=== PATIENT | male | born 1990 | race Caucasian/White ===

== ENCOUNTER 2018-09-29 09:17 | Inpatient (IN) | payer MEDICAID ==
[~2018-09-29] VITALS: Ht 175.3 cm; Wt 69.0 kg
[2018-09-29 09:29] VITALS: Ht 175.3 cm; Wt 69.0 kg
[2018-09-29 11:38] LABS: BASOPHIL % 0.1 % (0-2); PLATELET COUNT 211 x10^3mcL (130-400); RED CELL DISTRIBUTION WIDTH 12.8 % (11.5-14.5)
[2018-09-29 11:48] LABS: CALCIUM 10.4 mg/dL (8.5-10.1); CHLORIDE SERUM 93 mmol/L (98-107); CREATININE SERUM 1.7 mg/dL (0.7-1.3); GFR1 51 mL/min; GLUCOSE SERUM 176 mg/dL (74-106); POTASSIUM SERUM 4.6 mmol/L (3.5-5.1); SODIUM SERUM 137 mmol/L (136-145)
[2018-09-29 11:53] LABS: ALBUMIN 4.3 g/dL (3.4-5.0); ALKALINE PHOSPHATASE 141 U/L (46-116); ALT/SGPT 112 U/L (16-63); AST/SGOT 97 U/L (15-37); BILIRUBIN TOTAL 3.16 mg/dL (0.20-1.00); MAGNESIUM 1.3 mg/dL (1.8-2.4)
[2018-09-29 11:54] LABS: AMYLASE 721 U/L (25-115); CHOLESTEROL 202 mg/dL (<200); HDL CHOLESTEROL 66 mg/dL (40-60); TOTAL PROTEIN, SERUM 8.3 g/dL (6.4-8.2)
[2018-09-29 12:23] LABS: LIPASE 8698 IU/L (73-393)
[2018-09-29 12:51] LABS: UA SPECIFIC GRAVITY >=1.030 (1.005-1.035); microscopic required? YES; urine erythrocyte 1+ (NEGATIVE)
[2018-09-29 13:28] LABS: AMPHETAMINE QUAL UR NONE DETECTED (See below)
[2018-09-29 15:48] VITALS: BP 152/103
[2018-09-29 17:00] VITALS: BP 139/100
[2018-09-29 19:50] VITALS: BP 130/93
[2018-09-30 05:21] VITALS: BP 136/98
[2018-09-30 06:18] LABS: CALCIUM 7.6 mg/dL (8.5-10.1); CARBON DIOXIDE 27.6 mmol/L (21-32); CHLORIDE SERUM 101 mmol/L (98-107); CREATININE SERUM 0.9 mg/dL (0.7-1.3); GFR1 > 60 mL/min; GLUCOSE SERUM 86 mg/dL (74-106); POTASSIUM SERUM 4.5 mmol/L (3.5-5.1); SODIUM SERUM 136 mmol/L (136-145)
[2018-09-30 06:22] LABS: LIPASE 4665 IU/L (73-393)
[2018-09-30 07:01] LABS: PLATELET COUNT 135 x10^3mcL (130-400); RED CELL DISTRIBUTION WIDTH 13.2 % (11.5-14.5)
[2018-09-30 07:27] LABS: BASOPHIL % 0 % (0-2)
[2018-09-30 08:52] VITALS: BP 141/95
[2018-09-30 12:59] VITALS: BP 130/96
== END 2018-09-30 16:20 | disposition left against medical advice (07) | DRG 282 ==
LOC: ED 09:17 → DU 14:28
PROVIDERS: Emergency Medicine; ADMIT Internal Medicine
DX: K85.90 Acute pancreatitis without necrosis or infection, unspecified (principal); N17.0 Acute kidney failure with tubular necrosis; E83.42 Hypomagnesemia; E83.52 Hypercalcemia; K76.0 Fatty (change of) liver, not elsewhere classified; E86.0 Dehydration; R74.0 Nonspecific elevation of levels of transaminase and lactic acid dehydrogenase [LDH]; E78.5 Hyperlipidemia, unspecified; F17.210 Nicotine dependence, cigarettes, uncomplicated; F10.10 Alcohol abuse, uncomplicated
CPT/HCPCS: 99406; C9113; G0480; J1885; J2270